=== PATIENT | male | born 1930 | race Caucasian/White ===

== ENCOUNTER 2016-06-25 14:07 | Outpatient (RCR) | payer MEDICARE, OTHER ==
[~2016-06-25 14:07] MED LIST: ALEVE 220MG220 MG PO; CRESTOR5 MG PO; GLUCOSAMINE & C1 CA1 PO; NIACOR500 MG PO; OCUVITE1 TA1 PO; PHARMASSURE SA160 MG PO; TAMBOCOR50 MG PO; TOPROL XL 25MG25 MG PO; TYLENOL 325MG325 MG PO; ZANTAC 150MG T150 MG PO
== END 2016-07-02 13:19 | disposition still patient (30) ==
LOC: COL.CR 14:07
DX: Z48.812 Encounter for surgical aftercare following surgery on the circulatory system (principal); Z95.5 Presence of coronary angioplasty implant and graft

== ENCOUNTER 2018-05-21 15:36 | Emergency (ER) | payer MEDICARE, OTHER ==
[~2018-05-21] VITALS: Ht 177.8 cm; Wt 81.8 kg
[2018-05-21 15:46] VITALS: BP 177/74; PULSE 64
[2018-05-21] MEDS ORDERED: PLAVIX 75MG TAB75 MG PO (16:29)
== END 2018-05-21 17:10 | disposition home or self-care (01) ==
LOC: COL.ER 15:36
DX: S01.81XA Laceration without foreign body of other part of head, initial encounter (principal); I10 Essential (primary) hypertension; I25.10 Atherosclerotic heart disease of native coronary artery without angina pectoris; E78.5 Hyperlipidemia, unspecified; Z23 Encounter for immunization; Z79.82 Long term (current) use of aspirin; Z79.02 Long term (current) use of antithrombotics/antiplatelets; W01.198A Fall on same level from slipping, tripping and stumbling with subsequent striking against other object, initial encounter; Y92.009 Unspecified place in unspecified non-institutional (private) residence as the place of occurrence of the external cause

== ENCOUNTER 2018-05-26 10:08 | Emergency (ER) | payer MEDICARE, OTHER ==
[~2018-05-26 10:08] MED LIST changes: +PLAVIX 75MG TAB75 MG PO
[2018-05-26 10:25] VITALS: PULSE 69; TEMP 97.9
== END 2018-05-26 10:27 | disposition home or self-care (01) ==
LOC: COL.ER 10:08
DX: S01.81XD Laceration without foreign body of other part of head, subsequent encounter (principal); X58.XXXD Exposure to other specified factors, subsequent encounter